=== PATIENT | female | born 1995 | race Caucasian/White ===

== ENCOUNTER → 2018-04-23 16:24 | Outpatient (CLI) | payer OTHER, SELFPAY ==
[2018-04-24 13:38] LABS: Strep Grp B PCR NEG for Grp B Strep
== END ==
PROVIDERS: Visit Provider Specialist
DX: Z34.03 Encounter for supervision of normal first pregnancy, third trimester (principal)
CPT/HCPCS: 87653

== ENCOUNTER 2018-05-07 02:12 | Inpatient (IN) | payer OTHER, SELFPAY ==
--- NOTE | 2018-05-07 02:23 | PM.OBHP.1 ---
OB HPI Date/Time Date of admission: 05/07/18 Date Patient Seen: 05/07/18 Time Patient Seen: 02:24 History of Present Illness Chief complaint: EVALUATION OF LABOR : 1 Para: 0 Estimated Date of Delivery: 05/14/18 Estimated Gestational Age (weeks): 39 Narrative: Amy Murrell is a 22 year old female who arrived on Labor and delivery with contractions and spontaneous rupture membranes History of Present care: number of visits (5) Dating criteria: LMP confirmed by 2nd trimester US Obstetrical complications: none Medical complications: none Preadmission Labs Blood type: A (+) positive -: Antibody screen: negative, GBS status: negative, HBsAG: negative, HIV: negative, HSV 1: positive, HSV 2: negative and RPR/VDLR: negative -: Chlamydia screen: not detected and Gonorrhea screen: not detected -: Rubella: immune and Varicella: immune HCAB: negative Evaluation Evaluation Baseline heart rate: 140 Variability: Moderate (11-25) monitor accelerations: Present monitor decelerations: Absent Contraction Frequency (minutes): 2 Uterine Contraction Intensity: Moderate Category of Tracing: I Cervical dilation (cm): 4 Cervical effacement (%): 90 station: -1 [facility] Social History Smoking Status: Never smoker second hand exposure: No alcohol intake: former substance use type: does not use Review of Systems Review of Systems All systems reviewed & are unremarkable except as noted in HPI and below Exam Vital Signs (past 8 hours): Blood pressure 109/72, pulse of 86, temperature 97.9? Narrative Exam Narrative: HEENT exam within normal limits. Lungs are clear to auscultation percussion. Heart is regular rate and rhythm no S3-S4 or murmurs. Abdomen is gravid. Extremities without edema, nontender. Assessment and Plan (1) 39 weeks gestation of : Current visit: Yes Status: Acute (2) Normal first in third trimester: Current visit: Yes Status: Acute Normal 1st at 39 weeks in active labor with spontaneous rupture membranes. Patient currently declines pain medicine. Anticipate vaginal delivery.
--- NOTE | 2018-05-07 02:33 | P.HPOB_ITS ---
OB HPI Date/Time Date of admission: 05/07/18 Date Patient Seen: 05/07/18 Time Patient Seen: 02:24 History of Present Illness Chief complaint: EVALUATION OF LABOR : 1 Para: 0 Estimated Date of Delivery: 05/14/18 Estimated Gestational Age (weeks): 39 Narrative: Amy Murrell is a 22 year old female who arrived on Labor and delivery with contractions and spontaneous rupture membranes History of Present care: number of visits (5) Dating criteria: LMP confirmed by 2nd trimester US Obstetrical complications: none Medical complications: none Preadmission Labs Blood type: A (+) positive -: Antibody screen: negative, GBS status: negative, HBsAG: negative, HIV: negative, HSV 1: positive, HSV 2: negative and RPR/VDLR: negative -: Chlamydia screen: not detected and Gonorrhea screen: not detected -: Rubella: immune and Varicella: immune HCAB: negative Evaluation Evaluation Baseline heart rate: 140 Variability: Moderate (11-25) monitor accelerations: Present monitor decelerations: Absent Contraction Frequency (minutes): 2 Uterine Contraction Intensity: Moderate Category of Tracing: I Cervical dilation (cm): 4 Cervical effacement (%): 90 station: -1 [facility] Social History Smoking Status: Never smoker second hand exposure: No alcohol intake: former substance use type: does not use Review of Systems Review of Systems All systems reviewed & are unremarkable except as noted in HPI and below Exam Vital Signs (past 8 hours): Blood pressure 109/72, pulse of 86, temperature 97.9? Narrative Exam Narrative: HEENT exam within normal limits. Lungs are clear to auscultation percussion. Heart is regular rate and rhythm no S3-S4 or murmurs. Abdomen is gravid. Extremities without edema, nontender. Assessment and Plan (1) 39 weeks gestation of : Current visit: Yes Status: Acute (2) Normal first in third trimester: Current visit: Yes Status: Acute Normal 1st at 39 weeks in active labor with spontaneous rupture membranes. Patient currently declines pain medicine. Anticipate vaginal delivery.
[2018-05-07 02:37] VITALS: BP 109/72
[2018-05-07 03:45] LABS: Add Manual Diff / Slide Review NO; Basophils Percent Auto 0.3 % (0-2); Eosinophils Percent Auto 0.4 % (2-4); Hematocrit 35.3 % (36-46); Hemoglobin 11.4 g/dL (12.0-16.0); Lymphocytes Percent Auto 17.4 % (25-40); Mean Corpuscular HGB Conc 32.3 % (30-36); Mean Corpuscular Hemoglobin 23.6 PG (26-34); Mean Corpuscular Volume 73.2 fL (80-100); Monocytes Percent Auto 9.6 % (3-14); Neutrophils Absolute Auto 7200 /uL (3000-5900); Neutrophils Percent Auto 72.3 % (50-75); Platelet Count 238 X10^3/uL (150-400); Red Blood Cell Count 4.82 X10^6/uL (4.0-5.2); Red Cell Distribution Width 18.3 % (11.6-14.8)
[2018-05-07] MEDS: LACTATED RINGERS 1,000 ML 999 ML IV (05:25)
[2018-05-07] MEDS: fentaNYL 100 MCG/2 ML INJ IV (05:42)
[2018-05-07] MEDS: LACTATED RINGERS 1,000 ML 125 ML IV ×2 (06:30→08:35)
--- NOTE | 2018-05-07 09:44 | P.PCNOB_ITS ---
Delivery date: 05/07/18 Intrapartal events: None Induction method: none Delivery monitor: external FHT and external uterine Route of delivery: Laceration description: Vaginal - 2nd Degree Delivery repair: vicryl Estimated blood loss (mL): 300 Anesthesia type: Epidural Narrative: Patient arrived on Labor and delivery in active labor with spontaneous rupture membranes. heart tones category 1-2 throughout labor. Patient received an epidural catheter for pain control. She progressed normally and delivered spontaneously a, over an intact perineum, a viable male infant. The cord was clamped and cut and cord bloods obtained. Baby was placed skin to skin after cleaning off per patient. The placenta delivered spontaneously, intact, with 3 vessels. The patient had a second-degree vaginal tear that was repaired in 2 layers with 3 0 Vicryl suture. There were no cervical or perineal tears. Estimated blood loss was 300 cc initially. Patient then had consistent moderate bleeding. She was treated with IV Pitocin and with perirectal Cytotec. Which resolved the bleeding. Baby weighed 8 lb 4 oz, 3766 g [place] Baby 1: score (5 min): 9 score (10 min): 9 Plan for aftercare: Routine post vaginal delivery
[2018-05-07] MEDS: miSOPROStol 200 MCG TABLET 800 MCG PR (11:08)
[2018-05-07] MEDS: IBUPROFEN 600 MG TABLET PO (20:26)
[2018-05-08] MEDS: IBUPROFEN 600 MG TABLET PO (02:30)
[2018-05-08 07:13] LABS: Add Manual Diff / Slide Review NO; Basophils Percent Auto 0.6 % (0-2); Eosinophils Percent Auto 0.5 % (2-4); Hemoglobin 9.7 g/dL (12.0-16.0); Lymphocytes Percent Auto 14.9 % (25-40); Mean Corpuscular HGB Conc 31.5 % (30-36); Mean Corpuscular Hemoglobin 23.2 PG (26-34); Mean Corpuscular Volume 73.9 fL (80-100); Neutrophils Absolute Auto 11600 /uL (3000-5900); Platelet Count 226 X10^3/uL (150-400); Red Cell Distribution Width 18.6 % (11.6-14.8)
--- NOTE | 2018-05-08 08:53 | PM.OBDS.1 ---
Discharge Providers Date of admission: 05/07/18 02:12 Consults: 05/07/18 09:59 Consult to Nurse Practitioner Manager Routine Comment: Discharge provider: Sarahi Sanchez MD Summary Date Patient Seen: 05/08/18 Time Patient Seen: 08:54 Peripartum Data Delivery Method: Natural Vaginal Laceration description: Vaginal - 2nd Degree Procedures: Epidural catheter, vaginal delivery, repair of second-degree tear complications: uterine atony Discharge Diagnosis (1) Vaginal delivery: Status: Acute (2) 39 weeks gestation of : Status: Acute (3) Normal first in third trimester: Status: Acute Status at Discharge Functional status at discharge: independent ambulation Overall status at discharge: patient is progressing back to baseline Time Spent with Patient Total time spent providing and/or coordinating discharge services: Less than 30 minutes Objective Labs Result Diagrams: 05/08/18 06:58 Labs: Laboratory Results - last 24 hr 05/08/18 06:58 WBC 15.0 H RBC 4.20 Hgb 9.7 L Hct 31.0 L MCV 73.9 L MCH 23.2 L MCHC 31.5 RDW 18.6 H Plt Count 226 Neut % (Auto) 77.0 H Lymph % (Auto) 14.9 L [place] % (Auto) 7.0 Eos % (Auto) 0.5 L Baso % (Auto) 0.6 Neut # (Auto) 41729 H Discharge Plan Discharge Plan Patient Disposition: Home Discharge Med Rec/Prescriptions Prescriptions: New hydrocodone-acetaminophen 5-325 mg Tablet 1 tab PO Q4HR PRN (Reason: Pain, Moderate (4-6)) Qty: 20 RF: 0 ibuprofen 600 mg Tablet 600 mg PO Q6HR PRN (Reason: Pain, Mild (1-3)) Qty: 30 RF: 0 docusate sodium 250 mg capsule 250 mg PO BEDTIME PRN (Reason: constipation) Qty: 20 RF: 0 No Action omeprazole 20 mg Capsule,Delayed Release(Dr/Ec) 20 mg PO DAILY RF: 0 1 tab tablet 1 tab PO DAILY RF: 0 Follow up/Referrals: Sarahi Sanchez MD [Physician] - 1 Month Provider Discharge Instructions Diet: Regular Activity: Nothing in vagina for 4 weeks. Skin/Wound/Dressing Care Report to your healthcare provider any signs of infection, such as:: chills, fever, increased pain and unusual drainage Discharge Data Attending Provider: Sarahi Sanchez Admit Date/Time: 05/07/18 02:12
[2018-05-08 09:55] VITALS: BP 107/64; PULSE 49; RESP 16; TEMP 37.2
[2018-05-08] MEDS: DERMOPLAST SPRAY 20% 60 ML 1 SPRAY TOP (10:30)
== END 2018-05-08 11:15 | disposition home or self-care (01) | DRG 775 ==
PROVIDERS: Admitting Provider Specialist; Visit Provider Specialist
DX: O70.1 Second degree perineal laceration during delivery (principal); Z37.0 Single live birth; Z3A.39 39 weeks gestation of pregnancy
CPT/HCPCS: 01967; 36415; 59050; 59400; 85025; 86850; 86900; 86901; G0379; J3010; S0191

== ENCOUNTER → 2019-09-07 13:36 | Outpatient (CLI) | payer OTHER, SELFPAY ==
--- NOTE | 2019-09-07 13:37 | DI.US.S_ITS ---
PROCEDURE: US OB LIMITED INDICATIONS: DATES OUTSIDE/PRIOR DATING DATA: Last menstrual period (LMP): 05/18/19. LMP-based estimated date of delivery (ANKIT): 02/22/20. First dating scan (date and location): This study. Estimated date of delivery (ANKIT) from first dating scan: 02/20/20. TECHNIQUE: Real-time scanning was performed of the fetus, with image documentation and biometric measurements. Endovaginal scanning: Not needed for this examination. COMPARISON: None. FINDINGS: General: A single living intrauterine gestation is present. Presentation: Transverse head right. Placenta: Placental position is anterior, without previa. Amniotic fluid index: Appears normal for the early gestational age. heart rate: 152 beats per minute. Maternal cervical canal: 3.2 cm long. Normal lower limit is 2.5 cm. biometrics: Biparietal diameter: 3.2 cm, 16 weeks 0 days Head circumference: 12.5 cm, 16 weeks 2 days Abdominal circumference: 11.0 cm, 16 weeks 6 days Femur length: 2.0 cm, 15 weeks 6 days Estimated gestational age from initial scan: not applicable. Composite gestational age from present scan: 16 weeks 2 days Estimated weight and percentile: 154 g, 67th percentile Measurement variability for biometric dating: +/- 7 days from 14 weeks to 15 weeks 6 days gestation, +/- 10 days from 16 weeks to 21 weeks 6 days gestation, +/- 2 weeks from 22 weeks to 27 weeks 6 days gestation, +/- 3 weeks for 28 weeks gestation or later. weight reference: 4500 g or EFW >90/95% is considered macrosomia or large for gestational age. EFW <10% is small for gestational age. EFW 5% or less is considered intra-uterine growth restriction. Other: No definite anomaly seen but the quality of visualization at this stage of is suboptimal and followup anatomic survey at 20 weeks gestation may be warranted.. IMPRESSION: 16 week 2 day gestational age with delivered a projected to be centered on 02/20/20. As noted above the anatomic survey is limited by the early gestational age of averaging 16 weeks 2 days, and anatomic survey is considered most accurate at approximately 20 weeks gestation. Therefore, followup anatomic survey at that time may be warranted. Dictated by: Portillo Lindsey M.D. on 09/07/2019 at 15:43 Approved by: Portillo Lindsey M.D. on 09/07/2019 at 15:46
== END ==
PROVIDERS: PCP Family Medicine; Visit Provider Family Medicine
DX: Z34.82 Encounter for supervision of other normal pregnancy, second trimester (principal); Z3A.16 16 weeks gestation of pregnancy
CPT/HCPCS: 76815

== ENCOUNTER → 2019-10-05 14:18 | Outpatient (CLI) | payer OTHER, SELFPAY ==
--- NOTE | 2019-10-05 14:19 | DI.US.S_ITS ---
PROCEDURE: US OB >= 14 WEEKS FETUS INDICATIONS: ANATOMIC SURVEY OUTSIDE/PRIOR DATING DATA: Last menstrual period (LMP): 05/18/19. LMP-based estimated date of delivery (ANKIT): 02/22/20. First dating scan (date and location): 09/07/19. Estimated date of delivery (ANKIT) from first dating scan: 02/20/20. TECHNIQUE: Real-time scanning was performed of the fetus, with image documentation and biometric measurements. Endovaginal scanning: Not needed for this examination. COMPARISON: [facility], , OB >= 14 WEEKS FETUS, 04/23/2018, 16:42. [facility], , OB >= 14 WEEKS FETUS, 02/10/2018, 15:43. FINDINGS: General: A single living intrauterine gestation is present. Presentation: Transverse head left. Placenta: Placental position is anterior, without previa. Amniotic fluid index: 20.9 cm, normal range is 5-24 cm. heart rate: 153 beats per minute. Maternal cervical canal: 4.8 cm long. Normal lower limit is 2.5 cm. biometrics: Biparietal diameter: 4.5 cm, 19 weeks 5 days Head circumference: 17.5 cm, 20 weeks 0 days Abdominal circumference: 15.4 cm, 20 weeks 4 days Femur length: 3.1 cm, 19 weeks 5 days Estimated gestational age from initial scan: 20 weeks 2 days. Composite gestational age from present scan: 20 weeks 0 days Estimated weight and percentile: 333 g, 36% Measurement variability for biometric dating: +/- 7 days from 14 weeks to 15 weeks 6 days gestation, +/- 10 days from 16 weeks to 21 weeks 6 days gestation, +/- 2 weeks from 22 weeks to 27 weeks 6 days gestation, +/- 3 weeks for 28 weeks gestation or later. weight reference: 4500 g or EFW >90/95% is considered macrosomia or large for gestational age. EFW <10% is small for gestational age. EFW 5% or less is considered intra-uterine growth restriction. Anatomic survey: Neuro: Ventricles are non-dilated at less than 10 mm. Cisterna magna is normal at 3-11 mm. Cerebellum is normal in size and morphology. Nuchal skin fold: Normal at less than 6 mm between 14-21 weeks gestational age. Face: Nose and lips, facial profile are normal. Spine: No evidence for spina bifida. Heart: 4-chambered heart is present, with normal ventricular outflow tracts. Diaphragm: Diaphragm is intact. Stomach: Left-sided stomach is present. Kidneys: No hydronephrosis. Normal is less than 5 mm in 2nd trimester, less than 7 mm in 3rd trimester. Cord: 3-vessel cord has orthotopic insertion. Bladder: Normal in size. Extremities: All 4 extremities identified. IMPRESSION: Single living intrauterine gestation, no anomaly seen. The delivery date is projected to be centered on 02/20/20. Dictated by: Portillo Lindsey M.D. on 10/05/2019 at 15:37 Approved by: Portillo Lindsey M.D. on 10/05/2019 at 15:40
== END ==
PROVIDERS: PCP Family Medicine; Visit Provider Family Medicine
DX: Z34.82 Encounter for supervision of other normal pregnancy, second trimester (principal); Z3A.20 20 weeks gestation of pregnancy
CPT/HCPCS: 76811

== ENCOUNTER → 2019-10-20 16:28 | Outpatient (CLI) | payer OTHER, SELFPAY ==
[2019-10-20 17:50] LABS: Add Manual Diff / Slide Review NO; Basophils Absolute Auto 0 /uL (0-100); Basophils Percent Auto 0.4 % (0-2); Eosinophils Absolute Auto 0 /uL (0-450); Eosinophils Percent Auto 0.7 % (2-4); Hematocrit 32.3 % (36-46); Hemoglobin 10.8 g/dL (12.0-16.0); Lymphocytes Absolute Auto 1400 /uL (1100-4500); Mean Corpuscular HGB Conc 33.4 % (30-36); Mean Corpuscular Hemoglobin 25.6 PG (26-34); Mean Corpuscular Volume 76.5 fL (80-100); Monocytes Absolute Auto 500 /uL (0-900); Neutrophils Absolute Auto 5100 /uL (1500-7000); Neutrophils Percent Auto 71.9 % (50-75); Platelet Count 300 X10^3/uL (150-400); Red Blood Cell Count 4.22 X10^6/uL (4.0-5.2); Red Cell Distribution Width 14.5 % (11.6-14.8)
[2019-10-20 18:00] LABS: Appearance Urine UA SL CLOUDY; Bilirubin Urine UA NEGATIVE (NEGATIVE); Color Urine UA YELLOW; Glucose Urine UA NEGATIVE (Negative); Ketones Urine UA NEGATIVE (NEGATIVE); Leukocyte Esterase Urine UA 2+ (NEGATIVE); Nitrite Urine UA NEGATIVE (Negative); Occult Blood Urine UA NEGATIVE (Negative); Protein Urine UA NEGATIVE (Negative); Specific Gravity Urine UA 1.015 (1.000-1.035); Urobilinogen Urine UA 0.2 E.U./dL (0.2); pH Urine UA 7.5 (4.5-8.0)
[2019-10-20 18:09] LABS: Amorphous Sediment Urine 1+; Bacteria Urine Moderate (10-30); Mucus Urine 1+ (Negative); RBC Urine 0-1/HPF (0-5/HPF); Squamous Epithelial Cell Urine 10-30 /HPF (0-5/HPF); Transitional Epi Cells Urine 5-10/HPF (0-5/HPF); WBC Urine 1-5/HPF (0-5/HPF)
[2019-10-20 18:21] LABS: Hepatitis B Surface Antigen NEGATIVE s/c (NEGATIVE); Rubella Antibody IgG > 350.0 IU/mL (>15)
[2019-10-20 18:37] LABS: HIV 1 & 2 Ab/Ag 4th Gen Combo NEGATIVE (NEGATIVE); Hep C Virus Ab w/Reflex Quant NEGATIVE s/c (NEGATIVE)
[2019-10-22 19:11] LABS: RPR Screen Nonreactive (Nonreactive)
== END ==
PROVIDERS: PCP Family Medicine; Visit Provider Family Medicine
DX: Z34.81 Encounter for supervision of other normal pregnancy, first trimester (principal)
CPT/HCPCS: 36415; 80055; 81003; 81015; 86787; 86803; 86850; 86900; 86901; 87086; 87389

== ENCOUNTER → 2020-01-23 | Outpatient (CLI) | payer OTHER, SELFPAY | PROVIDERS: PCP Family Medicine; Visit Provider Family Medicine ==

== ENCOUNTER → 2020-02-07 10:35 | Outpatient (CLI) | payer OTHER, SELFPAY ==
[2020-02-08 07:49] LABS: Strep Grp B PCR NEG for Grp B Strep
== END ==
PROVIDERS: PCP Family Medicine; Visit Provider Family Medicine
DX: Z34.83 Encounter for supervision of other normal pregnancy, third trimester (principal); Z3A.37 37 weeks gestation of pregnancy
CPT/HCPCS: 87653

== ENCOUNTER 2020-02-25 03:38 | Observation (INO) | payer OTHER, SELFPAY ==
--- NOTE | 2020-02-25 07:23 | PM.OBTRLD ---
Visit Information Visit Information Date of evaluation: 02/25/20 Primary OB Provider: Preston Pineda On-call OB Provider: Sraahi Sanchez Reason for Evaluation: Yes rule out labor Vital Signs Vital Signs: Blood pressure 124/79, pulse of 95, temperature 98? 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) angélica/judaism: Jainism special angélica needs: No Smoking Status: Never smoker second hand exposure: No alcohol intake: former substance use type: does not use Evaluation Evaluation Baseline heart rate: 130 Variability: Moderate (11-25) monitor accelerations: Present monitor decelerations: Absent Contraction Frequency (minutes): 6 Uterine Contraction Intensity: Mild Cervical dilation (cm): 3 Cervical effacement (%): 80 station: -1 Diagnosis, Plan/Disposition Final Diagnosis (1) 40 weeks gestation of : Status: Acute (2) Uterine contractions during : Status: Acute Plan/Disposition Plan: Patient in prodromal labor. Precautions were reviewed and she was discharged home to return if her contractions increase strength and frequency OB Disposition: home
== END 2020-02-25 05:30 | disposition home or self-care (01) ==
PROVIDERS: Admitting Provider Specialist; PCP Family Medicine; Referring Provider Specialist; Visit Provider Specialist
DX: O48.0 Post-term pregnancy (principal); Z3A.40 40 weeks gestation of pregnancy
CPT/HCPCS: 59025; 59050; G0378; G0379

== ENCOUNTER 2020-02-25 11:10 | Inpatient (IN) | payer OTHER, SELFPAY ==
[2020-02-25] MEDS: LACTATED RINGERS 1,000 ML 100 ML IV ×3 (11:15→17:46)
[2020-02-25 11:32] LABS: Add Manual Diff / Slide Review NO; Basophils Absolute Auto 100 /uL (0-100); Basophils Percent Auto 0.7 % (0-2); Eosinophils Absolute Auto 0 /uL (0-450); Hematocrit 29.5 % (36-46); Hemoglobin 9.2 g/dL (12.0-16.0); Lymphocytes Absolute Auto 1600 /uL (1100-4500); Lymphocytes Percent Auto 12.7 % (25-40); Mean Corpuscular HGB Conc 31.1 % (30-36); Mean Corpuscular Hemoglobin 19.9 PG (26-34); Mean Corpuscular Volume 63.9 fL (80-100); Monocytes Absolute Auto 800 /uL (0-900); Monocytes Percent Auto 6.4 % (3-14); Neutrophils Absolute Auto 10000 /uL (1500-7000); Neutrophils Percent Auto 80.2 % (50-75); Platelet Count 264 X10^3/uL (150-400); Red Blood Cell Count 4.61 X10^6/uL (4.0-5.2); Red Cell Distribution Width 18.1 % (11.6-14.8); White Blood Cell Count 12.5 X10^3/uL (4.5-11.0)
[2020-02-25 12:10] LABS: Anisocytosis 1+; Microcytosis 1+
--- NOTE | 2020-02-25 12:14 | P.HPOB_ITS ---
OB HPI History of Present Condition Chief complaint: labor Narrative: Amy Murrell is a 24 year old female G2 para 1 estimated due date based on LMP 02/22/2020 estimated due date on early ultrasound 02/22/2020 current gestational age 40 and 3 7th weeks patient care established at 16 weeks gestational age. Patient had no significant care complications. Had routine follow-up. Patient had a total weight gain during of approximately 30 lb. Previous was a vaginal delivery baby's weight was 8 lb. Patient started eric late last night. They became regular in the middle the night. Came to the center she was eric every 10 minutes was 3 cm dilated. Patient elected to go home and came back. She was eric every 3-5 minutes. And had changed her cervix to 7 cm. I was called to evaluate the patient. On my arrival to the center vital signs are stable she is afebrile category 1 heart tracing. She is requesting an epidural. Her contractions are uncomfortable she has not had rupture of membranes. She has had good movement she has no complaints of headache dizziness blurry vision. She last ate at 8:30 p.m. yesterday. labs hemoglobin 11.4 hematocrit 95.3 urinalysis negative for infection VDRL nonreactive hepatitis-B surface antigen negative hepatitis-C antibody negative HSV 1 previously positive HSV 2-HIV nonreactive patient is rubella immune and varicella immune. Patient's blood type is A positive antibody screen negative 20 week ultrasound shows no abnormality with an estimated due date of 02/20/2020. Patient declined genetic screening. Past medical history of headaches and ear infections Past surgical history of wisdom teeth. Social history she is never smoked does not drink alcohol does not use recreational drugs Gynecological history no abnormal Pap smears. No history of hepatitis BC HIV or denies genital herpes or STD risks. Evaluation Evaluation Laboratory results: Laboratory Tests 02/25/20 11:15 WBC 12.5 H RBC 4.61 Hgb 9.2 L Hct 29.5 L MCV 63.9 L MCH 19.9 L MCHC 31.1 RDW 18.1 H Plt Count 264 Neut % (Auto) 80.2 H Lymph % (Auto) 12.7 L [place] % (Auto) 6.4 Eos % (Auto) 0.0 L Baso % (Auto) 0.7 Neut # (Auto) 45787 H Lymph # (Auto) 1600 [place] # (Auto) 800 Eos # (Auto) 0 Baso # (Auto) 100 RBC Morphology See below Anisocytosis 1+ H Microcytosis 1+ H PFSH Medical History (Updated 02/25/20 @ 07:32 by Sarahi Sanchez MD) Ear infection (Acute) Frequent headaches (Acute) Vaginal delivery (Inactive ~04/2018) Surgical History [place] teeth removed (Acute ~2013) Family History Father Hypertension Mother Tumor Grandfather Diabetes mellitus Hypertension Grandmother Liver cancer Grandmother Hypertension Social History (Updated 05/07/18 @ 02:31 by Sarahi Sanchez MD) marital status: household members: children pets and animals: No education level: high school 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 General: Alert no apparent distress. Affect is appropriate. Eric it is uncomfortable. HEENT: Neck is supple without lymphadenopathy pupils equal round and reactive. Cardio: S1-S2 regular rate and rhythm. Respiratory: Lungs clear to auscultation. Abdomen: Gravid. Extremities: Normal deep tendon reflexes trace edema. Vaginal exam: 7 cm 90% effaced intact -1 station [place]: Eric every 3-5 minutes moderate in intensity heart tones: 150 category 1 Objective Labs Result Diagrams: 02/25/20 11:15 Labs: Laboratory Results - last 24 hr 02/25/20 11:15 WBC 12.5 H RBC 4.61 Hgb 9.2 L Hct 29.5 L MCV 63.9 L MCH 19.9 L MCHC 31.1 RDW 18.1 H Plt Count 264 Neut % (Auto) 80.2 H Lymph % (Auto) 12.7 L [place] % (Auto) 6.4 Eos % (Auto) 0.0 L Baso % (Auto) 0.7 Neut # (Auto) 94116 H Lymph # (Auto) 1600 [place] # (Auto) 800 Eos # (Auto) 0 Baso # (Auto) 100 RBC Morphology See below Anisocytosis 1+ H Microcytosis 1+ H Assessment and Plan Assessment and Plan Assessment and Plan narrative: 24-year-old G2 para 1 at term 40 weeks and 3 7 stays in active labor. Labor orders were written informed consents were signed. Discussed management of labor with patient. She is requesting an epidural. We have 1 anesthesiologist that is on currently and they are in occasion the OR. We discussed about the possible delay of epidural anesthesia. Despite her uncomfortable contractions she is doing well with pain management at this point. IV was started blood type was done platelet count was ordered. Labor plan was discussed with patient today. Expectant management started. Reviewed patient's past medical social family history and all questions were answered.
[2020-02-25 12:22] LABS: COVID19 -Nasal RAPID Negative (Negative)
--- NOTE | 2020-02-25 13:59 | PM.OBPNLAB ---
Date/Time Date Patient Seen: 02/25/20 Time Patient Seen: 13:59 Pain Control Pain control: tolerating well and epidural Pelvic Exam Dilation (cm): 9 Effacement (%): 90 station: -1 Amniotic membrane status: Ruptured Comments: Rupture clear fluid Contractions Contractions on admission: regular Monitor mode: External Contraction pattern: Regular Contraction intensity: Strong/Firm Status status: Category l Heart Rate Baseline: 135 Monitor Accelerations: Present Monitor Variability: Moderate Assessment and Plan Assessment: active labor Plan: continuous present management Comments: Patient doing well. Epidurals working fine. 9 cm dilation. Minus one station. Try position changes with peanut ball in bed. Ongoing labor management. Vital signs stable afebrile on mom.
[2020-02-25] MEDS: OXYTOCIN 10 UNIT/ML VIAL 20 UNIT IM (14:53)
[2020-02-25] MEDS: METHYLERGONOVINE 0.2 MG/ML VIAL IM (15:00)
[2020-02-25] MEDS: miSOPROStoL 200 MCG TABLET 600 MCG PR (15:10)
--- NOTE | 2020-02-25 15:11 | PM.PROC.1 ---
Procedures Date/Time Date of procedure: 02/25/20 Time of procedure: 15:11
--- NOTE | 2020-02-25 15:11 | PM.OBPRVD ---
Labor & Delivery Delivery date: 02/25/20 Intrapartal events: None Cervical ripening method: none Induction method: none Delivery augmentation: rupture of membranes Delivery monitor: external FHT Route of delivery: Episiotomy description: Midline L&D Laceration Description: Periurethral - 1st Degree Delivery repair: chromic Estimated blood loss (mL): 1,000 Anesthesia type: Spinal Complications: Stage I of labor; approximately 8 hours. 4 hours in the hospital. Patient had category 1 tracing throughout stage I. Patient received epidural anesthesia with good results. Patient had normal vital signs and was afebrile. Patient had Gal[place] catheter placed after epidural. Had approximately 1.5 L of fluid during stage I. patient made good progress during stage I of labor. Near the end is stage I their early decelerations consistent with head compression. Stage II of labor. Proximally 20 minutes. Patient pushed to deliver a viable male vertex position occiput posterior. Delivery of head there was no nuchal cord and body was delivered without difficulty. Cord was cut and transected baby was handed to the waiting attendant. During stage II of labor heart tones were category 1. Mom's vital signs were stable. Mom's was an exceptional pusher. The make good descent through -1 to 0 station to complete. After delivery of hep baby. Pitocin 10 IM units was given. Stage III of labor. Approximately 10 minutes. Patient delivered intact placenta with three-vessel cord. During stage III of labor. Patient had vigorous bleeding was given IM Pitocin IM Methergine and rectal Cytotec. With good fundal massage. Patient passed clots and eventually the bleeding slowed down. Estimated blood loss was about a 1000 cc. Patient was given a fluid bolus of 1 L during this time frame. Mom never became hypotensive her tachycardic. Mom and baby were resting comfortably afterwards. [place] Baby 1: score (5 min): 9 score (10 min): 9
[2020-02-25] MEDS: LACTATED RINGERS IV (15:30)
[2020-02-25] MEDS: OXYTOCIN IV (15:30)
[2020-02-25 19:49] VITALS: BP 125/68
[2020-02-26 06:26] LABS: Hematocrit 25.2 % (36-46); Hemoglobin 7.7 g/dL (12.0-16.0)
--- NOTE | 2020-02-26 07:51 | PM.DS.1 ---
History of Present Illness History of Present Illness Date Patient Seen: 02/26/20 Time Patient Seen: 07:51 Chief complaint: labor Narrative: Please see admission HPI Discharge Providers Provider Date of admission: 02/25/20 11:10 Primary care physician: Talia Siegel MD Consults: 02/26/20 15:16 Consult to Software Quality Assurance Analyst Routine Comment: Discharge provider: Preston Pineda MD Summary Hospital Course Discharge Diagnosis: Term Normal spontaneous vaginal delivery hemorrhage given Pitocin and Methergine and Cytotec Acute blood-loss anemia due to hemorrhage Routine care Hospital Course: 24-year-old G2 para 1 40 and 3 7th weeks admitted the hospital with labor. Patient progressed to deliver a viable male vaginally without complications. Patient had a repair of a first-degree midline perineal laceration. Patient then proceeded have a hemorrhage which she was given IM Pitocin IV Pitocin and Methergine and Cytotec rectally. Patient's bleeding stopped. There was aggressive fundal massage. day 1. Patient ambulating eating tolerating pain without any pain medication. Urination was okay. No lightheaded and dizziness. Patient is breast-feeding going well and requesting to be discharged home. Exam Vital Signs (past 8 hours): General: Alert no apparent distress. Affect is appropriate. Noy it is uncomfortable. HEENT: Neck is supple without lymphadenopathy pupils equal round and reactive. Cardio: S1-S2 regular rate and rhythm. Respiratory: Lungs clear to auscultation. Abdomen: Uterus firm. Incision clean dry and intact. Extremities: Normal deep tendon reflexes trace edema. Objective Labs Result Diagrams: 02/26/20 06:15 Labs: Laboratory Results - last 24 hr 02/25/20 02/25/20 02/25/20 11:15 11:15 11:15 WBC 12.5 H RBC 4.61 Hgb 9.2 L Hct 29.5 L MCV 63.9 L MCH 19.9 L MCHC 31.1 RDW 18.1 H Plt Count 264 Neut % (Auto) 80.2 H Lymph % (Auto) 12.7 L [place] % (Auto) 6.4 Eos % (Auto) 0.0 L Baso % (Auto) 0.7 Neut # (Auto) 08799 H Lymph # (Auto) 1600 [place] # (Auto) 800 Eos # (Auto) 0 Baso # (Auto) 100 RBC Morphology See below Anisocytosis 1+ H Microcytosis 1+ H COVID-19 PCR Negative Blood Type A Positive Antibody Screen Negative 02/26/20 06:15 WBC RBC Hgb 7.7 L Hct 25.2 L MCV MCH MCHC RDW Plt Count Neut % (Auto) Lymph % (Auto) [place] % (Auto) Eos % (Auto) Baso % (Auto) Neut # (Auto) Lymph # (Auto) [place] # (Auto) Eos # (Auto) Baso # (Auto) RBC Morphology Anisocytosis Microcytosis COVID-19 PCR Blood Type Antibody Screen Discharge Plan Discharge Plan Patient Disposition: Home Discharge orders & Medications Prescriptions: New docusate sodium [DOK] 100 mg Capsule 100 mg PO DAILY Qty: 15 RF: 0 ibuprofen 600 mg Tablet 600 mg PO Q6HR PRN (Reason: Pain, Mild (1-3)) Qty: 30 RF: 0 ferrous gluconate 324 mg (38 mg iron) tablet 324 mg PO DAILY Qty: 30 RF: 1 Continued 1 tab tablet 1 tab PO DAILY RF: 0 Follow up/Referrals: Talia Siegel MD [Primary Care Provider] - Visit Report/Discharge Packet Visit Report Forms: Patient Portal/API, Stroke Signs & Symptoms Discharge Data Primary Care Provider: Talia Siegel Attending Provider: Preston Pineda Admit Date/Time: 02/25/20 11:10
[2020-02-26 08:04] VITALS: BP 125/68; PULSE 98; RESP 18; TEMP 37.2
== END 2020-02-26 11:30 | disposition home or self-care (01) | DRG 806 ==
PROVIDERS: Admitting Provider Family Medicine; PCP Family Medicine; Referring Provider Family Medicine; Visit Provider Family Medicine
DX: O48.0 Post-term pregnancy (principal); O98.32 Other infections with a predominantly sexual mode of transmission complicating childbirth; Z37.0 Single live birth; D62 Acute posthemorrhagic anemia; B00.9 Herpesviral infection, unspecified; D64.9 Anemia, unspecified; Z3A.40 40 weeks gestation of pregnancy; O71.82 Other specified trauma to perineum and vulva; Z11.59 Encounter for screening for other viral diseases
CPT/HCPCS: 01967; 36415; 59025; 59050; 59410; 85014; 85018; 85025; 86850; 86900; 86901; 87635; G0378; G0379; J2210; J2590; J3010; S0191

== ENCOUNTER → 2021-07-23 16:17 | Outpatient (CLI) | payer OTHER, MEDICAID, SELFPAY ==
--- NOTE | 2021-07-23 16:18 | DI.US.S_ITS ---
PROCEDURE: US OB <= 14 WEEKS FETUS INDICATIONS: INITIAL DATING VIABILITY. OUTSIDE/PRIOR DATING DATA: Last menstrual period (LMP): April 14, 2021 . LMP-based estimated date of delivery (ANKIT): January 19, 2022 . First dating scan (date and location): [facility]; July 23, 2021 . Estimated date of delivery (ANKIT) from first dating scan: January 19, 2022 . TECHNIQUE: Real-time scanning was performed of the fetus and maternal pelvic organs, with image documentation. COMPARISON: None. FINDINGS: Cervical length: 5.1 cm. Embryo: The mean crown-rump length measures 8.6 3 cm, compatible with a 14 week, 4 day gestation. Heart rate: 150 beats per minute. Measurement variability in dating: +/- 4 weeks by LMP, +/- 7 days by mean sac diameter (use before 6 weeks gestation if crown-rump length not able to be measured), +/- 5 days by crown-rump length (up to 8 weeks 6 days gestation), +/- 7 days by crown-rump length (up to 13 weeks 6 days gestation). Maternal organs: Ovaries appear normal. IMPRESSION: Single live intrauterine gestation as detailed above. Dictated by: Sudhir Vivar M.D. on 07/24/2021 at 10:21 Approved by: Sudhir Vivar M.D. on 07/24/2021 at 10:26
== END ==
PROVIDERS: PCP Family Medicine; Referring Provider Family Medicine; Visit Provider Family Medicine
DX: Z34.82 Encounter for supervision of other normal pregnancy, second trimester (principal); Z3A.14 14 weeks gestation of pregnancy
CPT/HCPCS: 76801

== ENCOUNTER → 2021-07-26 12:38 | Outpatient (CLI) | payer OTHER, MEDICAID, SELFPAY ==
[2021-07-26 15:02] LABS: Urine N gonorrhoeae NOT DETECTED
[2021-07-26 15:16] LABS: Urine Chlamydia NOT DETECTED
== END ==
PROVIDERS: PCP Family Medicine; Visit Provider Family Medicine
DX: O26.899 Other specified pregnancy related conditions, unspecified trimester (principal); N89.8 Other specified noninflammatory disorders of vagina; Z3A.14 14 weeks gestation of pregnancy; Z11.3 Encounter for screening for infections with a predominantly sexual mode of transmission; Z11.8 Encounter for screening for other infectious and parasitic diseases
CPT/HCPCS: 87210; 87491; 87591

== ENCOUNTER → 2021-07-26 12:49 | Outpatient (CLI) | payer OTHER, MEDICAID, SELFPAY ==
[2021-07-26 13:49] LABS: Add Manual Diff / Slide Review NO; Basophils Absolute Auto 0 /uL (0-100); Basophils Percent Auto 0.3 % (0-2); Eosinophils Absolute Auto 100 /uL (0-450); Eosinophils Percent Auto 0.9 % (2-4); Hematocrit 31.5 % (36-46); Hemoglobin 10.1 g/dL (12.0-16.0); Lymphocytes Absolute Auto 1600 /uL (1100-4500); Lymphocytes Percent Auto 24.7 % (25-40); Mean Corpuscular HGB Conc 32.2 % (30-36); Mean Corpuscular Hemoglobin 22.6 PG (26-34); Mean Corpuscular Volume 70.2 fL (80-100); Monocytes Absolute Auto 500 /uL (0-900); Monocytes Percent Auto 7.6 % (3-14); Neutrophils Absolute Auto 4200 /uL (1500-7000); Neutrophils Percent Auto 66.5 % (50-75); Platelet Count 262 X10^3/uL (150-400); Red Blood Cell Count 4.49 X10^6/uL (4.0-5.2); Red Cell Distribution Width 17.1 % (11.6-14.8); White Blood Cell Count 6.3 X10^3/uL (4.5-11.0)
[2021-07-26 14:24] LABS: Appearance Urine UA CLEAR; Bilirubin Urine UA NEGATIVE (NEGATIVE); Color Urine UA YELLOW; Glucose Urine UA NEGATIVE (Negative); Ketones Urine UA TRACE (NEGATIVE); Leukocyte Esterase Urine UA 2+ (NEGATIVE); Nitrite Urine UA NEGATIVE (Negative); Occult Blood Urine UA TRACE-LYSED (Negative); Protein Urine UA TRACE (Negative); Specific Gravity Urine UA 1.015 (1.000-1.035); Urobilinogen Urine UA 0.2 E.U./dL (0.2)
[2021-07-26 14:25] LABS: pH Urine UA 7.5 (4.5-8.0)
[2021-07-26 14:57] LABS: Bacteria Urine Many (>30); Culture Indicated Urine Specimen Cultured; RBC Urine None Seen (0-5/HPF); Squamous Epithelial Cell Urine 1-5 /HPF (0-5/HPF); Transitional Epi Cells Urine 5-10/HPF (0-5/HPF); WBC Urine 10-30/HPF (0-5/HPF)
[2021-07-27 03:43] LABS: Hepatitis B Surface Antigen NEGATIVE s/c (NEGATIVE)
[2021-07-27 03:58] LABS: HIV 1 & 2 Ab/Ag 4th Gen Combo NEGATIVE (NEGATIVE); Hep C Virus Ab w/Reflex Quant NEGATIVE s/c (NEGATIVE)
[2021-07-27 08:13] LABS: RPR Screen Non Reactive (Non Reactive); Varicella IgG Antibody 574 index (Immune >165)
== END ==
PROVIDERS: PCP Family Medicine; Referring Provider Family Medicine; Visit Provider Family Medicine
DX: O26.892 Other specified pregnancy related conditions, second trimester (principal); N89.8 Other specified noninflammatory disorders of vagina; Z3A.14 14 weeks gestation of pregnancy; Z11.3 Encounter for screening for infections with a predominantly sexual mode of transmission; Z11.8 Encounter for screening for other infectious and parasitic diseases
CPT/HCPCS: 36415; 80055; 81003; 81015; 86787; 86803; 86850; 86900; 86901; 87086; 87210; 87389; 87491; 87591

== ENCOUNTER → 2021-09-06 14:11 | Outpatient (CLI) | payer OTHER, MEDICAID, SELFPAY ==
--- NOTE | 2021-09-06 14:12 | DI.US.S_ITS ---
PROCEDURE: US OB >= 14 WEEKS FETUS INDICATIONS: anatomy screening OUTSIDE/PRIOR DATING DATA: Last menstrual period (LMP): 04/14/2021. LMP-based estimated date of delivery (ANKIT): 01/19/2022. First dating scan (date and location): 07/23/2021. Estimated date of delivery (ANKIT) from first dating scan: 01/19/2022. The calculations are made using the ultrasound ANKIT of 01/19/2022. TECHNIQUE: Real-time scanning was performed of the fetus, with image documentation and biometric measurements. Endovaginal scanning: Not performed. COMPARISON: [facility], , OB <= 14 WEEKS FETUS, 07/23/2021, 16:46. FINDINGS: General: A single living intrauterine gestation is present. Presentation: Cephalic. Placenta: Placental position is posterior , without previa. Amniotic fluid index: 14.1 cm, normal range is 5-24 cm. Single deepest vertical pocket is 4 cm. heart rate: 153 beats per minute. Maternal cervical canal: 4 cm long. Normal lower limit is 2.5 cm. biometrics: Biparietal diameter: 5.1 cm, 21 weeks 2 days Head circumference: 18.8 cm, 21 weeks 0 days Abdominal circumference: 14.9 cm, 20 weeks 1 day Femur length: 3.7 cm, 21 weeks 4 days Clinically estimated gestational age: 20 weeks 5 days Composite gestational age from present scan: 21 weeks 0 days Estimated weight and percentile: 382 g, 53% Anatomic survey: Neuro: Ventricles are non-dilated at less than 10 mm. Cisterna magna is normal at 3-11 mm. Cerebellum is normal in size and morphology. Nuchal skin fold: Normal at less than 6 mm between 14-21 weeks gestational age. Face: Nose and lips, facial profile are normal. Spine: No evidence for spina bifida. Heart: 4-chambered heart is present, with normal ventricular outflow tracts. Diaphragm: Diaphragm is intact. Stomach: Left-sided stomach is present. Kidneys: No hydronephrosis. Normal is less than 5 mm in 2nd trimester, less than 7 mm in 3rd trimester. Cord: 3-vessel cord has orthotopic insertion. Bladder: Normal in size. Extremities: All 4 extremities identified. IMPRESSION: 1. Reina living intrauterine at 21 weeks 0 days based on today's ultrasound. This is concordant with the prior ultrasound. There is expected interval growth. Fetus is in the 53rd percentile for weight. 2. Normal placenta and amniotic fluid. 3. Normal and complete anatomic survey. We strive to produce accurate, complete, and clear reports of imaging services. To assist us in improving patient care, this report was composed using standard report templates and voice recognition software. Therefore, it may contain abnormal punctuation, insertions and/or omissions. Occasional wrong-word or sound-alike substitutions may occur. Though we review the report and make efforts to correct it, we do recommend that the report be read carefully in proper context to recognize any text inaccuracies. Dictated by: Florencio Kelly M.D. on 09/06/2021 at 16:11 Approved by: Florencio Kelly M.D. on 09/06/2021 at 16:15
== END ==
PROVIDERS: PCP Family Medicine; Referring Provider Family Medicine; Visit Provider Family Medicine
DX: Z36.89 Encounter for other specified antenatal screening (principal); Z3A.21 21 weeks gestation of pregnancy
CPT/HCPCS: 76811

== ENCOUNTER → 2021-12-26 16:50 | Outpatient (CLI) | payer OTHER, MEDICAID, SELFPAY ==
[2021-12-27 13:08] LABS: Strep Grp B PCR NEG for Grp B Strep
== END ==
PROVIDERS: PCP Family Medicine; Referring Provider Specialist; Visit Provider Specialist
DX: Z34.83 Encounter for supervision of other normal pregnancy, third trimester (principal); Z3A.36 36 weeks gestation of pregnancy
CPT/HCPCS: 87653

== ENCOUNTER 2022-01-09 22:03 | Inpatient (IN) | payer OTHER, MEDICAID, SELFPAY ==
[2022-01-09 22:58] LABS: Basophils Absolute Auto 100 /uL (0-100); Basophils Percent Auto 0.5 % (0-2); Eosinophils Absolute Auto 0 /uL (0-450); Eosinophils Percent Auto 0.1 % (2-4); Hematocrit 29.1 % (36-46); Hemoglobin 8.8 g/dL (12.0-16.0); Lymphocytes Absolute Auto 1800 /uL (1100-4500); Mean Corpuscular Hemoglobin 19.3 PG (26-34); Mean Corpuscular Volume 64.3 fL (80-100); Monocytes Absolute Auto 1000 /uL (0-900); Monocytes Percent Auto 8.8 % (3-14); Neutrophils Absolute Auto 8900 /uL (1500-7000); Neutrophils Percent Auto 75.6 % (50-75); Platelet Count 307 X10^3/uL (150-400); Red Blood Cell Count 4.53 X10^6/uL (4.0-5.2); Red Cell Distribution Width 22.4 % (11.6-14.8); White Blood Cell Count 11.7 X10^3/uL (4.5-11.0)
[2022-01-09 23:00] LABS: Add Manual Diff / Slide Review SLIDE REVIEW
[2022-01-09 23:09] LABS: COVID19 -Nasal RAPID Negative (Negative)
[2022-01-10 00:17] LABS: Anisocytosis 3+; Hypochromasia 2+; Microcytosis 2+; Ovalocytes 1+
[2022-01-10] MEDS: miSOPROStoL 200 MCG TABLET 1000 MCG PR (01:21)
[2022-01-10] MEDS: METHYLERGONOVINE 0.2 MG/ML VIAL IM (01:23)
--- NOTE | 2022-01-10 01:38 | P.HPOB_ITS ---
OB HPI Date/Time Date of admission: 01/09/22 Date Patient Seen: 01/10/22 Time Patient Seen: 12:45 History of Present Condition Chief complaint: observation of labor ANKIT Calculator Estimated Delivery Date Method Current WG Current Estimate 01/19/22 LMP (Certain) 38w 5d Estimated Gestational Age (weeks): 38 : 3 Para: 2 Narrative: This patient is a 26yo @38+5 admitted in active labor starting 6 hours prior to admission, now s/p an ultimately uncomplicated vaginal delivery as de scribed in the delivery note. The patient has a history of a 9#2 oz baby with a shoulder dystocia and a hemorrhage in her prior delivery, and declined glucose screening though did have normal FSGs. 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 care: good care Ultrasounds: normal mid trimester US Obstetrical complications: none Medical complications OB: none Preadmission Labs Last OB Lab Results: Blood Type A Positive 01/09/22 22:40 01/09/22 Antibody Screen Negative 01/09/22 22:40 01/09/22 Hematocrit 29.1 % (36-46) L 01/09/22 22:40 01/09/22 Hemoglobin 8.8 g/dL (12.0-16.0) L 01/09/22 22:40 01/09/22 Hepatitis B Surface Antigen Negative s/c (NEGATIVE) 07/26/21 13:18 07/26/21 Hepatitis C Antibody Negative s/c (NEGATIVE) 07/26/21 13:18 07/26/21 Rubella Antibody 313.0 IU/mL (>15) 07/26/21 13:18 07/26/21 Varicella-Zoster IgG Antibody 574 index (Immune >165) 07/26/21 13:18 07/26/21 Group B Streptococcus (PCR) Neg for grp b strep 12/26/21 16:50 12/26/21 -: Chlamydia screen: negative, Gonorrhea screen: negative and Urine: negative External Labs -: Urine: negative Prior (ies) Past Pregnancies Del. Date GA/Weeks Labor Lgth Wt Sex Route Outcome Anesthesia Place Delv Breastfeed Preg Comp Name 05/07/18 39 5 8 lb Male vaginal live - full term epidu ral I[facility] Dr Sanchez 13 months hemorrhage [place] 02/25/20 40.2 10 9 lb 2 oz Male vaginal live - full ter m epidural I[facility] Dr. Pineda 11 mos. hemorrhage Rob Delivery Date: 05/07/18 Last Updated by: Sara Ansari D.O. PPH: Severe blood loss in delivery room Delivery Date: 02/25/20 Last Updated by: Sara Ansari D.O. Epidural didn't work. Stuck shoulders but Dr. Pineda was able to release. Evaluation Evaluation Comments: Delivered [facility] Medical History Anemia (~2014) Ear infection Frequent headaches (~2017) Vaginal delivery (~04/2018) Surgical History [place] teeth removed (~2013) Family History Father Hypertension Mother Tumor Grandfather Diabetes mellitus Hypertension Grandmother Liver cancer Grandmother Heart disease Hypertension Grandfather No problems noted. Social History (Updated 05/07/18 @ 02:31 by Sarahi Sanchez MD) marital status: number of children: 2 household members: spouse and children lives independently: Yes caregiver/support person: No housing: house pets and animals: No (just fish. ) education level: high school occupational status: unemployed ([employer]. 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 ) current occupational exposures/hazards: No angélica/rastafarian: [employer] special angélica needs: No seatbelt use: always do you feel safe at home: Yes Smoking Status: Never smoker second hand exposure: No alcohol intake: never substance use type: does not use during the past year weight has: remained stable well-balanced diet: about half the time (She is feeling very ill, hard to eat much right now. ) daily servings fruits/ve-4 caffeine: Yes (Coffee - 1 cup or less daily. ) Type(s) of exercise: aerobic (Elliptical at home. Not much lately while feeling sick. ) and regular exercise frequency: daily duration: 15-30 minutes/day Meds Home Medications and Allergies Home Medications Medication Instructions Recorded Confirmed Type ondansetron 4 mg disintegrating 4 mg PO Q6H PRN #20 tab 07/12/21 01/02/22 Rx tablet polysaccharide iron complex 100 mg PO DAILY 07/17/21 01/02/22 History (Hematex) prenat.vits,romulo,[id number] 1 tab PO DAILY 07/17/21 01/02/22 History omeprazole 20 mg capsule,delayed 20 mg PO DAILY #30 cap 10/01/21 01/02/22 Rx release blood-glucose meter #1 ea 11/22/21 01/02/22 Rx lancets 30 gauge and blood glucose #100 ea 11/22/21 01/02/22 Rx strips combo pack sumatriptan succinate 25 mg tablet See Rx Instructions .ROUTE 11/28/21 01/02/22 Rx .COMPLEX #10 tab Allergies Allergy/AdvReac Type Severity Reaction Status Date / Time No Known Drug Allergies Allergy Verified 04/12/20 10:32 Review of Systems Constitutional Constitutional: Reports system reviewed and no additional complaints, except as documented Cardiovascular Cardiovascular: Reports system reviewed and no additional complaints, except as documented Respiratory Respiratory: Reports system reviewed and no additional complaints, except as documented Gastrointestinal Gastrointestinal: Reports system reviewed and no additional complaints, except as documented Genitourinary Genitourinary: Reports as per HPI OB Exam External Female Exam: Yes normal external appearance Objective Labs Result Diagrams: 01/09/22 22:40 Labs: Laboratory Results - last 24 hr 01/09/22 01/09/22 01/09/22 22:40 22:40 22:40 WBC 11.7 H RBC 4.53 Hgb 8.8 L Hct 29.1 L MCV 64.3 L MCH 19.3 L MCHC 30.0 RDW 22.4 H Plt Count 307 Neut % (Auto) 75.6 H Lymph % (Auto) 15.0 L [place] % (Auto) 8.8 Eos % (Auto) 0.1 L Baso % (Auto) 0.5 Neut # (Auto) 8900 H Lymph # (Auto) 1800 [place] # (Auto) 1000 H Eos # (Auto) 0 Baso # (Auto) 100 RBC Morphology See below Hypochromasia 2+ H Anisocytosis 3+ H Microcytosis 2+ H Ovalocytes 1+ H SARS-CoV-2 (PCR) Negative Blood Type A Positive Antibody Screen Negative Assessment and Plan Assessment and Plan Assessment and Plan narrative: This patient is now s/p an uncomplicated , with brisk immediate bleeding now controlled. The patient is admitted per the usual protocol. Time Spent with Patient Total time spent with greater than 50% in coordination of care (as documented) at patient's floor/unit and/or counseling patient:: 15-24 minutes
--- NOTE | 2022-01-10 01:46 | PM.OBPRVD ---
Labor & Delivery Delivery date: 01/10/22 Intrapartal Events: Precipitous Labor < 3 hours Cervical ripening method: none Induction method: none Delivery augmentation: rupture of membranes Delivery monitor: external FHT and external uterine Route of delivery: L&D Laceration Description: Perineal - 2nd Degree (small, along prior scar tissue) Delivery repair: vicryl Estimated blood loss (mL): 300 Anesthesia Type: Epidural Narrative: This patient was admitted in rapid labor. She was able to receive an epidural and was then found to be fully dilated, with AROM at 10/100/1. After a short second stage, she was delivered of a healthy baby boy, apgars 9+9, weight ____. The patient was delivered in the Bladimir position, and the shoulders delivered with a prophylactic corkscrew maneuver. The placenta delivered with manual extraction due to ongoing bleeding, and the patient's bleeding was controlled with pitocin, methergine, and rectal cytotec to good effect. A small 2nd degree perineal laceration was repaired in the usual fashion with 3-0 vicryl, and a transabdominal ultrasound confirmed no retained products or accumulated clot. Baby 1: Infant gender: Male Presentation: vertex Position: Left Occiput Posterior Placenta delivery description: Spontaneous Cord Vessel Description: 3 Vessels score (1 min): 9 score (5 min): 9 weight: 7 lb 10 oz Plan for aftercare: Routine care
[2022-01-10 02:31] VITALS: BP 104/68
[2022-01-10] MEDS: ACETAMINOPHEN 325 MG TABLET 650 MG PO ×3 (03:59→16:25)
[2022-01-10] MEDS: DERMOPLAST SPRAY 20% 60 ML 1 SPRAY TOP (03:59)
[2022-01-10] MEDS: IBUPROFEN 600 MG TABLET PO ×3 (04:00→16:24)
[2022-01-10 16:24] VITALS: TEMP 36.9
[2022-01-10] MEDS: LANOLIN OINT 7 GM 1 APPLIC TOP (16:24)
[2022-01-10 16:25] VITALS: TEMP 36.9
--- NOTE | 2022-01-10 17:39 | PM.OBDS.1 ---
Discharge Providers Provider Date of admission: 01/09/22 22:03 Discharge Date: 01/10/22 Primary care physician: Talia Siegel MD Consults: 01/09/22 22:42 Consult to Anesthesiology Urgent Comment: Consulting Provider: Anesthesiologist Reason for consultation: Epidural Has provider been notified: No 01/11/22 01:37 Consult to Center Receptionist Routine Comment: Discharge provider: Sarahi Sanchez MD Summary Hospital Course Date Patient Seen: 01/10/22 Time Patient Seen: 17:39 Diagnoses: Vaginal delivery Hospital Course: Patient arrived on Labor and delivery in active labor. She received an epidural catheter for pain control. She had a spontaneous vaginal delivery with repair of a second-degree tear. Patient is well. She is urinating and ambulating well. Passing gas. Pain is under control. No headaches, scotomata, epigastric pain. Peripartum Data Infant Delivery Method: Natural Vaginal Laceration Description: Perineal - 2nd Degree Procedures: Epidural catheter, spontaneous vaginal delivery, repair of second-degree tear complications: none [place] 1: Gender: Male Disposition of : home Discharge Diagnosis (1) Vaginal delivery: Status: Acute Status at Discharge Cognitive/behavioral status at discharge: oriented Functional status at discharge: independent ambulation Overall status at discharge: patient is progressing back to baseline Time Spent with Patient Time attestation: Total time spent providing and/or coordinating discharge services: Time spent: Less than 30 minutes Objective Labs Result Diagrams: 01/09/22 22:40 Labs: Laboratory Results - last 24 hr 01/09/22 01/09/22 01/09/22 22:40 22:40 22:40 WBC 11.7 H RBC 4.53 Hgb 8.8 L Hct 29.1 L MCV 64.3 L MCH 19.3 L MCHC 30.0 RDW 22.4 H Plt Count 307 Neut % (Auto) 75.6 H Lymph % (Auto) 15.0 L [place] % (Auto) 8.8 Eos % (Auto) 0.1 L Baso % (Auto) 0.5 Neut # (Auto) 8900 H Lymph # (Auto) 1800 [place] # (Auto) 1000 H Eos # (Auto) 0 Baso # (Auto) 100 RBC Morphology See below Hypochromasia 2+ H Anisocytosis 3+ H Microcytosis 2+ H Ovalocytes 1+ H SARS-CoV-2 (PCR) Negative Blood Type A Positive Antibody Screen Negative Exam Vital Signs (past 8 hours): - Blood pressure 98/65, pulse 74, temperature 98.4? 01/10/22 16:24 01/10/22 16:25 Temperature 98.4 F 98.4 F Narrative Exam Narrative: Abdomen is soft, nontender. Uterus is firm, at U, nontender. Mild lochia. Extremities without edema and nontender. Patient is Rh positive, rubella immune. She declined Tdap. Discharge Plan Discharge Plan Patient Disposition: Home Provider Discharge Comment: Patient is to continue to extra iron for her chronic anemia Discharge orders & Medications Prescriptions: Continued sumatriptan succinate 25 mg tablet See Rx Instructions .ROUTE .COMPLEX Qty: 10 0RF Dose Instruction: TAKE ONE TABLET BY MOUTH AT ONSET OF MIGRAINE NEEDED Rx Instructions: TAKE ONE TABLET BY MOUTH AT ONSET OF MIGRAINE NEEDED prenat.vits,romulo,[id number] Tablet 1 tab PO DAILY 0RF Hematex 100 mg iron/5 mL liquid 100 mg PO DAILY 0RF Discontinued omeprazole 20 mg capsule,delayed release(DR/EC) 20 mg PO DAILY Qty: 30 3RF ondansetron 4 mg tablet,disintegrating 4 mg PO Q6H PRN (Reason: nausea and vomiting) Qty: 20 2RF No Action (DME) blood-glucose meter Misc See Rx Instructions .ROUTE .MEDSUPPLY Qty: 1 0RF Rx Instructions: Use to check blood sugar 4 times daily as directed and record on log sheet (DME) lancets-blood glucose strips 30 gauge combo pack See Rx Instructions .ROUTE .MEDSUPPLY Qty: 100 2RF Rx Instructions: Use to check blood sugar 5 times daily as directed and record on log sheet Follow up/Referrals: aTlia Siegel MD [Primary Care Provider] - Sarahi Sanchez MD [Physician] - 6 Weeks Diet/Activity/Treatments Diet: Regular Activity: Nothing in vagina for 6 weeks Skin/Wound/Dressing Care Report to your healthcare provider any signs of infection, such as:: chills, fever Discharge Data Primary Care Provider: Talia Siegel
== END 2022-01-10 22:03 | disposition home or self-care (01) | DRG 560 ==
PROVIDERS: Specialist; Admitting Provider Obstetrics & Gynecology; PCP Family Medicine; Referring Provider Family Medicine; Visit Provider Obstetrics & Gynecology
DX: O62.3 Precipitate labor (principal); Z3A.38 38 weeks gestation of pregnancy; Z37.0 Single live birth; O70.1 Second degree perineal laceration during delivery; Z20.822 Contact with and (suspected) exposure to COVID-19
CPT/HCPCS: 01967; 36415; 59050; 59409; 76815; 85025; 86850; 86900; 86901; 87635; C9803; G0379; J2210; S0191

== ENCOUNTER → 2023-06-18 12:17 | Outpatient (CLI) | payer OTHER, MEDICAID, SELFPAY ==
--- NOTE | 2023-06-18 12:18 | DI.US.S_ITS ---
PROCEDURE: US OB >= 14 WEEKS FETUS INDICATIONS: dating and viability; 16 weeks EGA with no US yet OUTSIDE/PRIOR DATING DATA: Last menstrual period (LMP): 02/22/2023. LMP-based estimated date of delivery (ANKIT): 11/29/2023. First dating scan (date and location): Today's exam. Estimated date of delivery (ANKIT) from first dating scan: 12/01/2023. TECHNIQUE: Real-time scanning was performed of the fetus, with image documentation and biometric measurements. Endovaginal scanning: Not performed COMPARISON: [facility], , US OB >= 14 WEEKS FETUS, 01/02/2022, 16:54. FINDINGS: General: A single living intrauterine gestation is present. Presentation: Breech. Placenta: Placental position is right, lateral , without previa. Amniotic fluid index: 12.9 cm, normal range is 5-24 cm. Single deepest vertical pocket is 4 cm. heart rate: 153 beats per minute. Maternal cervical canal: 3.5 cm long. Normal lower limit is 2.5 cm. biometrics: Biparietal diameter: 3.5 centimeters, 16 weeks 5 days Head circumference: 11.6 centimeters, 15 weeks 5 days Abdominal circumference: 11.1 centimeters, 16 weeks 6 days Femur length: 2.0 centimeters, 15 weeks 6 days Clinically estimated gestational age: 16 weeks 4 days Composite gestational age from present scan: 16 weeks 2 days Estimated weight and percentile: 153 grams, 28th percentile IMPRESSION: Single living intrauterine at 16 weeks 2 days, ANKIT of 12/01/2023 based on today's exam. Findings are concordant with clinical dating. Estimated weight of 153 grams, 28th percentile. We strive to produce accurate, complete, and clear reports of imaging services. To assist us in improving patient care, this report was composed using standard report templates and voice recognition software. Therefore, it may contain abnormal punctuation, insertions and/or omissions. Occasional wrong-word or sound-alike substitutions may occur. Though we review the report and make efforts to correct it, we do recommend that the report be read carefully in proper context to recognize any text inaccuracies. Dictated by: Avery Perkins M.D. on 06/18/2023 at 13:42 Approved by: Avery Perkins M.D. on 06/18/2023 at 13:45
== END ==
PROVIDERS: PCP Family Medicine; Referring Provider Student in an Organized Health Care Education/Training Program; Visit Provider Student in an Organized Health Care Education/Training Program
DX: Z34.82 Encounter for supervision of other normal pregnancy, second trimester (principal); Z3A.16 16 weeks gestation of pregnancy
CPT/HCPCS: 76811

== ENCOUNTER → 2023-07-13 06:45 | Outpatient (CLI) | payer OTHER, MEDICAID, SELFPAY ==
--- NOTE | 2023-07-13 06:46 | DI.US.S_ITS ---
PROCEDURE: US OB >= 14 WEEKS FETUS INDICATIONS: 20 week anatomy OUTSIDE/PRIOR DATING DATA: Last menstrual period (LMP): 11/29/2023. LMP-based estimated date of delivery (ANKIT): 11/29/2023. First dating scan (date and location): 06/18/2023 Estimated date of delivery (ANKIT): 11/29/2023. TECHNIQUE: Real-time scanning was performed of the fetus, with image documentation and biometric measurements. COMPARISON: [facility], OB >= 14 WEEKS FETUS, 06/18/2023, 12:38. FINDINGS: General: A single living intrauterine gestation is present. Presentation: Breech. Placenta: Placental position is right fundal , without previa. Amniotic fluid index: 15.4 cm, normal range is 5-24 cm. Single deepest vertical pocket is 5.0 cm. heart rate: 141 beats per minute. Maternal cervical canal: 3.7 cm long. Normal lower limit is 2.5 cm. biometrics: Biparietal diameter: 4.8 cm: 20 weeks 3 days Head circumference: 18.6 cm: 21 weeks 0 days Abdominal circumference: 15.9 cm: 21 weeks 0 days Femur length: 3.0 cm: 19 weeks 1 day Clinically estimated gestational age: 20 weeks 1 day Composite gestational age from present scan: 20 weeks 3 days Estimated weight and percentile: 340 g, 58th percentile Anatomic survey: Neuro: Ventricles are non-dilated at less than 10 mm. Cisterna magna is normal at 3-11 mm. Cerebellum is normal in size and morphology. Nuchal skin fold: Normal at less than 6 mm between 14-21 weeks gestational age. Face: Nose and lips, facial profile are normal. Spine: No evidence for spina bifida. Heart: 4-chambered heart is present, with normal ventricular outflow tracts. Diaphragm: Diaphragm is intact. Stomach: Left-sided stomach is present. Kidneys: No hydronephrosis. Normal is less than 5 mm in 2nd trimester, less than 7 mm in 3rd trimester. Cord: 3-vessel cord has orthotopic insertion. Bladder: Normal in size. Extremities: All 4 extremities identified. IMPRESSION: 1. Single live intrauterine with an estimated gestational from current scan of 20 weeks 3 days. 2. Estimated weight 340 g, 58 percentile. 3. Normal visualized anatomy. We strive to produce accurate, complete, and clear reports of imaging services. To assist us in improving patient care, this report was composed using standard report templates and voice recognition software. Therefore, it may contain abnormal punctuation, insertions and/or omissions. Occasional wrong-word or sound-alike substitutions may occur. Though we review the report and make efforts to correct it, we do recommend that the report be read carefully in proper context to recognize any text inaccuracies. anomalies recommendations DELETE FROM FINAL REPORT Measurement variability for biometric dating: +/- 7 days from 14 weeks to 15 weeks 6 days gestation, +/- 10 days from 16 weeks to 21 weeks 6 days gestation, +/- 2 weeks from 22 weeks to 27 weeks 6 days gestation, +/- 3 weeks for 28 weeks gestation or later. weight reference: 4500 g or EFW >90/95% is considered macrosomia or large for gestational age. EFW <10% is small for gestational age. EFW 5% or less is considered intra-uterine growth restriction. Derived from [employer] Practice Bulletin #163, January 2016. Screening for aneuploidy. * Thickened nuchal fold: most powerful 2nd trimester marker for Down syndrome, with 40-50% sensitivity and >99% specificity. * Choroid plexus cyst: in isolation, no association with aneuploidy. If cardiac structures and hands are open (normal), no further imaging followup. Consider aneuploidy screening or diagnostic testing if other markers are present. * Ventriculomegaly between 10-15 mm: associated with aneuploidy, 25 fold likelihood of Down syndrome. Refer to tertiary care center for high-risk OB workup. * Echogenic intracardiac focus: 1.4-1.8 fold likelihood of Down syndrome. If isolated finding, consider aneuploidy screening with cell-free DNA. If aneuploidy screen is negative, no further evaluation needed. * Pelvicaliectasis: renal pelvis measures 4 mm or more AP diameter up to 20 weeks EGA. 1.5-1.6 fold likelihood of Down syndrome. If isolated finding, consider aneuploidy screening with cell-free DNA. Also, recommend repeat US in 3rd trimester; if 7 mm or smaller, then no further workup is needed. * Echogenic bowel (equal to bone on low frequency transducer): associated with aneuploidy, intra-amniotic bleeding, cystic fibrosis, CMV. Refer to tertiary care center for [employer] workup. * Short femur length (<2.5 percentile for EGA): Can be associated with aneuploidy, IUGR, short limb dysplasia. Recommend detailed anatomic survey, consider repeat US in 3rd trimester. Dictated by: Taco Queen M.D. on 07/13/2023 at 9:56 Approved by: Taco Queen M.D. on 07/13/2023 at 10:05
[2023-07-13 08:15] LABS: Add Manual Diff / Slide Review NO; Basophils Absolute Auto 0 /uL (0-100); Basophils Percent Auto 0.5 % (0-2); Eosinophils Absolute Auto 100 /uL (0-450); Eosinophils Percent Auto 1.2 % (2-4); Hematocrit 30.6 % (36-46); Lymphocytes Absolute Auto 1500 /uL (1100-4500); Lymphocytes Percent Auto 28.8 % (25-40); Mean Corpuscular HGB Conc 32.6 % (30-36); Mean Corpuscular Hemoglobin 24.2 PG (26-34); Mean Corpuscular Volume 74.3 fL (80-100); Monocytes Absolute Auto 500 /uL (0-900); Monocytes Percent Auto 8.4 % (3-14); Neutrophils Absolute Auto 3300 /uL (1500-7000); Neutrophils Percent Auto 61.1 % (50-75); Platelet Count 230 X10^3/uL (150-400); Red Blood Cell Count 4.12 X10^6/uL (4.0-5.2); Red Cell Distribution Width 15.6 % (11.6-14.8); White Blood Cell Count 5.4 X10^3/uL (4.5-11.0)
[2023-07-13 08:31] LABS: HEMOLYSIS < 15 (0-50); Iron 24 ug/dL (37-170)
[2023-07-13 08:42] LABS: Percent Iron Saturation 5 % (15-50); Total Iron Binding Capacity 445 ug/dL (265-497); Transferrin 371 mg/dL (206-381)
[2023-07-13 15:21] LABS: Hepatitis B Surface Antigen NEGATIVE s/c (NEGATIVE)
[2023-07-13 15:38] LABS: HIV 1 & 2 Ab/Ag 4th Gen Combo NEGATIVE (NEGATIVE); Hep C Virus Ab w/Reflex Quant NEGATIVE s/c (NEGATIVE)
[2023-07-14 06:37] LABS: RPR Screen Non Reactive (Non Reactive)
[2023-07-14 12:08] LABS: Varicella IgG Antibody 747 index (Immune >165)
== END ==
PROVIDERS: PCP Family Medicine; Referring Provider Student in an Organized Health Care Education/Training Program; Visit Provider Student in an Organized Health Care Education/Training Program
DX: Z34.82 Encounter for supervision of other normal pregnancy, second trimester (principal); Z3A.20 20 weeks gestation of pregnancy
CPT/HCPCS: 36415; 76811; 80055; 83540; 83550; 86787; 86803; 86850; 86900; 86901; 87086; 87389

== ENCOUNTER → 2023-11-12 12:11 | Outpatient (CLI) | payer OTHER, MEDICAID, SELFPAY ==
[2023-11-13 12:42] LABS: Strep Grp B PCR NEG for Grp B Strep
== END ==
PROVIDERS: PCP Family Medicine; Visit Provider Student in an Organized Health Care Education/Training Program
DX: Z34.83 Encounter for supervision of other normal pregnancy, third trimester (principal); Z3A.36 36 weeks gestation of pregnancy
CPT/HCPCS: 87653